=== PATIENT | female | born 1960 | race Caucasian/White ===

== ENCOUNTER 2020-07-26 19:48 | Inpatient (IN) | payer BC, OTHER ==
[~2020-07-26] VITALS: Ht 167.6 cm; Wt 61.2 kg
[2020-07-26 19:54] VITALS: BP 146/79
[2020-07-26] MEDS ORDERED: ADVIL200 M1 PO (20:02)
[2020-07-26] MEDS ORDERED: CELEXA 10 MG TA10 M1 PO (20:03)
[2020-07-26 20:18] LABS: URINE BILIRUBIN NEGATIVE (Negative); URINE BLOOD 1+ (Negative); URINE CLARITY CLEAR; URINE COLOR YELLOW; URINE GLUCOSE-RANDOM* NEGATIVE (Negative); URINE KETONES NEGATIVE (Negative); URINE LEUKOCYTES-REFLEX NEGATIVE (Negative); URINE NITRITE-REFLEX NEGATIVE (Negative); URINE PROTEIN (DIPSTICK) NEGATIVE (Negative); URINE UROBILINOGEN 0.2 E.U./dl (0.2-1.0)
[2020-07-26 20:26] LABS: SQUAMOUS 0-3 Few /LPF (0-3); URINE RBC 3-10 Few /HPF (NONE SEEN); URINE WBC-REFLEX 0-5 Rare /HPF (0-5)
[2020-07-26 20:27] LABS: BACTERIA-REFLEX 1-9 Few /HPF (None Seen); CRYSTALS None Seen /LPF (None Seen); HYALINE CASTS 0-3 Few /LPF (None Seen)
[2020-07-26 20:41] LABS: ABSOLUTE NEUTROPHILS 5.2 thou/uL (1.4-8.2); BASOPHILS 0.2 % (0.0-2.0); EOSINOPHILS 1.8 % (0.0-3.0); HEMATOCRIT 34.2 % (37.0-47.0); HEMOGLOBIN 11.7 gm/dL (12.0-15.0); LYMPHOCYTES 10.2 % (24.0-44.0); MCHC 34.2 g/dL (28.0-37.0); MCV 90.6 fL (80.0-100.0); MONOCYTES 12.5 % (1.0-8.0); PLATELET COUNT 204 thou/uL (150-400); POLYS 75.3 % (36.0-66.0); RBC 3.77 mil/uL (4.20-5.00); RDW 12.5 % (10.5-14.5); WBC 6.9 thou/uL (4.0-11.0)
[2020-07-26 20:49] LABS: CREATININE 0.9 mg/dL (0.6-1.0); POTASSIUM 4.1 mmol/L (3.5-5.1)
[2020-07-26 20:55] LABS: ALBUMIN 3.7 g/dL (3.4-5.0); TOTAL BILIRUBIN 0.5 mg/dL (0.2-1.0); TOTAL PROTEIN 6.9 g/dL (6.4-8.2)
[2020-07-26 22:37] VITALS: BP 110/70
[2020-07-26 22:53] VITALS: BP 98/54
--- NOTE | 2020-07-26 23:00 | NUR ---
Pt. admitted to the unit from the emergency room accompanied by staff. She is c/o severe abdominal pain. Ivp pain medication given (see emar) with relief noted.
[2020-07-27] VITALS (7 sets, daily range): BP systolic 91–101; BP diastolic 51–57
--- NOTE | 2020-07-27 02:00 | NUR ---
Pt. resting quietly in the bed and is starting to get some abdominal pain and ivp pain med given (see emar). Admission assessment and history is completed. Ambulated to the bathroom with standby assistance and pt. voided. No c/o nausea.
--- NOTE | 2020-07-27 07:40 | NUR ---
PT AWAKE IN BED. PT DENIES PAIN OR NAUSEA AT THIS TIME. PT NPO FOR SURGERY. PT HAS IV FLUIDS OF LR RUNNING AT 125ML/HR. PT AT BEDSIDE. PT LAST PAIN MED WAS 0635. PT HAS SCD'S ON.
--- NOTE | 2020-07-27 09:00 | NUR ---
PT LEFT VIA W/C TO SURGERY AT THIS TIME.
--- NOTE | 2020-07-27 12:10 | NUR ---
PT BACK NOW FROM SURGERY. PT RESTING WITH EYES CLOSED. OBTAINING VS AT THIS TIME.
--- NOTE | 2020-07-27 14:12 | NUR ---
PT AWAKE AND AT BEDSIDE. PT DRINKING GADIEL MIST WITH ICE. PT DIDN'T WANT TO EAT LUNCH TRAY DUE TO JUST COMING BACK FROM SURGERY.
--- NOTE | 2020-07-27 15:51 | NUR ---
PT ADMITTED RELATED TO ACUTE APPY PT UNDER WENT LAP APPY. CM REVIEWED CHART AND SPOKE WITH CARE TEAM. CM MET WITH PT AT BEDSIDE THIS DAY. PT APPEARED TO BE A&O X4. CM ROLE INTRODUCED. PT INDICATED THAT SHE RESIDES IN A HOUSE WITH HER SPOUSE WITH 3 STEPS TO ENTER AND 20 SHE USES INSIDE. 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 PT IDNICATED NO HH HX OR DME. PT INDICATED SHE PLANS TO RETURN HOME ONCE MEDICALLY STABLE. CM FOLLOWING REGARDING DC PLANNING.
--- NOTE | 2020-07-27 17:43 | NUR ---
PT EATING SOME DINNER WITHOUT ANY ISSUES. PT UP TO BATHROOM A COUPLE OF TIMES WITH STAND-BY ASSIST. PT UP WITH STEADY GAIT. PT STATED PAIN IS CONTROLED AT A 4.
--- NOTE | 2020-07-28 03:04 | NUR ---
ASSUMED PT CARE AT AROUND 1915 HRS. PT IS S/P LAP APPY. SHE IS DOING WELL. VOIDING OK. ATE DINNER, TOLERATIONG ORAL MEDS WITH NO NAUSEA. AFEBRILE. LAP SITES LOOK OK.CONTINUES ON IV FLUIDS WELL ABTS.PROGRESSING TOWARDS CARE GOALS.
[2020-07-28 04:00] VITALS: BP 86/57
[2020-07-28 04:34] LABS: HEMATOCRIT 30.2 % (37.0-47.0); HEMOGLOBIN 10.1 gm/dL (12.0-15.0); MCHC 33.5 g/dL (28.0-37.0); MCV 92.4 fL (80.0-100.0); RBC 3.26 mil/uL (4.20-5.00); RDW 12.8 % (10.5-14.5); WBC 6.3 thou/uL (4.0-11.0)
[2020-07-28 04:47] LABS: ALBUMIN 2.3 g/dL (3.4-5.0); CALCIUM 8.2 mg/dL (8.5-10.1); CREATININE 0.8 mg/dL (0.6-1.0); PHOSPHORUS 2.1 mg/dL (2.5-4.9); POTASSIUM 3.8 mmol/L (3.5-5.1)
[2020-07-28] MEDS ORDERED: ACETAMINOPHEN325 M1 PO (07:53)
[2020-07-28] MEDS ORDERED: OXYCODONE HCL 55 MG PO (07:53)
[2020-07-28] MEDS ORDERED: CEFDINIR300 MG PO (07:54)
[2020-07-28] MEDS ORDERED: COLACE 100 MG100 MG PO (07:54)
[2020-07-28] MEDS ORDERED: MIRALAX17 GM PO (07:54)
[2020-07-28] MEDS ORDERED: ADVIL200 M1 PO (07:55)
[2020-07-28] MEDS ORDERED: FLAGYL500 M1 PO (07:55)
[2020-07-28 08:22] VITALS: BP 86/57
[2020-07-28 08:29] VITALS: BP 97/65
--- NOTE | 2020-07-28 10:34 | NUR ---
Assumed pt care this am, VS stable, No pain was noted this am, 3 lap sites c/d/i, pt was walking the halls. POC followed with no signs or verbalixations of distress noted. DC intructions given, medication sent to the pharmacy. IV removed. Pt is now dc.
== END 2020-07-28 08:55 | disposition home or self-care (01) | DRG 343 ==
LOC: ER 19:48 → 4W 22:09 → EROBS 22:09 → 4W 22:54
PROVIDERS: Physician Assistant; ADMIT Surgery; ATTEND Surgery
PROC: 0DTJ4ZZ Resection of Appendix, Percutaneous Endoscopic Approach (ICD-10-PCS; principal; 2020-07-27)
DX: K35.80 Unspecified acute appendicitis (principal); Z79.899 Other long term (current) drug therapy; Z20.822 Contact with and (suspected) exposure to COVID-19
CPT/HCPCS: 10040; 50010; 50101; 50411; 50555; 50558; 50739; 50740; 51489; 52265; 53307; 53310; 53312; 54022; 54118; 56462; 56525; 56526; 58574; 62110; 62900; 70005